=== PATIENT | female | born 1960 | race Caucasian/White ===

== ENCOUNTER 2024-07-07 16:15 | Emergency (ER) | payer BC, SELFPAY ==
[2024-07-07 16:45] VITALS: BP 130/71; PULSE 71; RESP 18; TEMP 36.8; O2SAT 98
--- NOTE | 2024-07-07 17:13 | ED.BACK ---
HPI - Back Pain/Injury General Chief Complaint: Back Pain/Injury Stated Complaint: Lower Back Spams Time Seen by Provider: 07/07/24 17:13 Source: patient, RN notes reviewed and old records reviewed Mode of arrival: ambulatory Limitations: no limitations History of Present Illness HPI Narrative: 63-year-old female presents to the [facility] with lower back spasms. Patient denies any frequency or urgency with urination, reports occasional abdominal distension but no pain. Patient states when she changes positions or twists she has increased lower back discomfort. No loss retention of bowel or bladder. No numbness or tingling in extremities. Walking with a slow but normal gait. No midline tenderness. Denies any injuries Patient states that she is from out of town, travel Tuesday. Has been sleeping on a hospital couch and driving, not as active as she has normally been Onset (ago): day(s) (5) Related Data Home Medications Medication Instructions Recorded Confirmed atorvastatin 40 mg tablet 40 mg DIRECTED 07/07/24 07/07/24 metformin 750 mg tablet,extended 750 mg PO BID 07/07/24 07/07/24 release 24 hr omeprazole 40 mg capsule,delayed 40 mg DIRECTED 07/07/24 07/07/24 release sertraline 100 mg tablet 100 mg DIRECTED 07/07/24 07/07/24 Allergies Allergy/AdvReac Type Severity Reaction Status Date / Time acetaminophen [From Percocet] AdvReac Shakiness Verified 07/07/24 16:43 meperidine [From Demerol] AdvReac Nausea and Verified 07/07/24 16:43 Vomiting oxycodone [From Percocet] AdvReac Shakiness Verified 07/07/24 16:43 Review of Systems Review of Systems: All systems reviewed & are unremarkable except as noted in HPI and below Constitutional: Constitutional: Reports no additional constitutional complaints Eyes: Eyes: Reports no additional eye complaints ENT: Reports system reviewed and no additional complaints, except as documented Cardiovascular: Cardiovascular: Reports no additional cardiovascular complaints, Denies chest pain and Denies dyspnea Respiratory: Respiratory: Reports no additional respiratory complaints, Denies chest congestion, Denies cough and Denies dyspnea Gastrointestinal: Gastrointestinal: Reports no additional gastrointestinal complaints, Denies abdominal pain, Denies nausea and Denies vomiting Musculoskeletal: Musculoskeletal: Reports as per HPI Integumentary/Breasts: Skin/Breast: Reports system reviewed and no additional complaints, except as docu Neurologic: Reports system reviewed and no additional complaints, except as documented Psychiatric: Psychiatric: Reports no additional psychiatric complaints Allergic/Immunologic: Allergic/Immunologic: Reports no additional allergic/immunologic complaints PMFSH Comments At the time of my signature, I reviewed and agree with the nursing past medical, surgical, social, and family history. There is no relevant family history pertinent to the patient complaint. Exam Const: General: cooperative, healthy appearing, comfortable, no acute distress, well developed, alert and well nourished Nutritional Appearance: well nourished Orientation/consciousness: patient oriented x3 Limitations: no limitations HENMT: Head: normal to inspection Ears: hearing grossly normal bilaterally and external ears normal Face/Nose/Sinus: Normal external nose present, Normal nares present, Normal nasal mucous membranes and turbinates present, normal facial exam and face symmetric Face and sinus: normal facial exam and face symmetric Eyes: General: appearance normal, both eyes and all related structures Alignment and Position: alignment normal Periorbital: periorbital findings normal Neck: Neck: normal visual inspection, full ROM, no lymphadenopathy and no meningeal signs Chest: Chest palpation & inspection: normal inspection of the chest Resp: Effort & Inspection: normal respiratory effort and able to speak in complete sentences Auscultation: clear to a
[2024-07-09 14:28] LABS: EDUAAPPEAR Clear; EDUABILI Negative (Negative); EDUABLOOD Negative (Negative); EDUACOLOR1 Yellow; EDUAGLUCOSE 2+ (Negative); EDUAKETONE Negative (Negative); EDUALEUKO Trace (Negative); EDUANITRATE Negative (Negative); EDUAPROTEIN Negative (Negative); EDUAUROBILI 0.2
== END 2024-07-07 17:35 | disposition home or self-care (01) ==
PROVIDERS: Emergency Provider Nurse Practitioner
DX: S39.012A Strain of muscle, fascia and tendon of lower back, initial encounter (principal)
CPT/HCPCS: 81003; 87086; 99203; G0463

== ENCOUNTER 2025-07-19 09:29 | Emergency (ER) | payer MEDICARE, SELFPAY ==
[2025-07-19 09:44] VITALS: BP 121/71; PULSE 69; RESP 18; TEMP 36.3; O2SAT 97
--- OUTSIDE RECORDS SUMMARY | 2025-07-19 09:50 | XMS_ITS | Encounter Summary ---
Author Organization [facility] Address [address] [place] [address] Care Team Providers Care Chemists Name Role Phone Dany Niño MD Unavailable [phone] Dany Niño MD Primary Care Provider [phone] Esther Garcia DO Unavailable [phone] Source Comments In the event that this is information that is protected by federal Confidentiality of Substance User Disorder Patient Records, CFR Part 2 prohibits the unauthorized disclosure of these records.[facility] Encounter Details Date Type Department Care Team (Late st Contact Info) Description 08/29/2024 Scanned Document [place] [facility] [address] [place] [address] Dany Niño MD [address] [place], [place] [id number] Social History Tobacco Use Types Packs/Day Years Used Date Smoking Tobacco: Never Smokeless Tobacco: Never Alcohol Use Standard Drinks/Week Comments Never 0 (1 standard drink = 0.6 oz pur e alcohol) Food Insecurity Answer Date Recorded Within the past 12 months, h ave there been times that your food ran out and didnt have money to get more? No 11/25/2023 Are there times that you worry that this might h appen? No 11/25/2023 Transportation Needs Answer Date Record ed Within the past 12 months, h as lack of transportation kept you from meeting your needs? No 11/25/2023 Select all that apply: Not on file Housing Stability Answer Date Recorded Are you facing challenges wi th a safe and reliable place to live? No 11/25/2023 Medication Affordability Answer Date Re corded Within the past 12 months, h ave you had trouble paying for medical supplies or medication-related expenses? No 11/25 Assistance Answer Date Recorded Would you like to be connect ed to groups that can help with any of these topics? (choose all that apply) None 11/25/2023 Housing Stability Answer Date Recorded Within the past 12 months, h as your electric, gas, oil or water been shut off? No 11/25/2023 Are you facing challenges wi th a safe and reliable place to live? 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 Gender Identity Not on file Sexual Orientation Not on file documented as of this encounter Plan of Treatment Upcoming Encounters Date Type Department Care Team (Late st Contact Info) Description 12/05/2025 9:30 AM PRINTED CIRCUIT BOARD ASSEMBLY REPAIRER Office Visit [place] [facility] [address] [place] [phone] Dany Niño MD [address] [place] [address] documented as of this encounter Visit Diagnoses Not on filedocumented in this encounter Care Teams Chemists Relationship Specialty Start Date End Date Dany Niño MD [address] [place] [address] PCP - General Family Medicine 01/25/24 Dany Niño MD [address] [place] [address] System Generated Attributed Clinician 12/18/23 Esther Garcia DO [address] [address] System Generated Attributed Clinician 03/20/24 documented as of this encounter
--- OUTSIDE RECORDS SUMMARY | 2025-07-19 09:50 | XMS_ITS | Encounter Summary ---
Author Organization [facility] Address [address] [place] [address] Care Team Providers Care Under Ground Miner Name Role Phone Dany Niño MD Unavailable [phone] Dany Niño MD Primary Care Provider [phone] Esther Garcia DO Unavailable [phone] Source Comments In the event that this is information that is protected by federal Confidentiality of Substance User Disorder Patient Records, CFR Part 2 prohibits the unauthorized disclosure of these records.[facility] Encounter Details Date Type Department Care Team (Late st Contact Info) Description 01/26/2024 Orders Only [place] Rheumatology [address] [facility] [address] [place] [address] Esther Garcia DO [address] [facility] [address] [place] [address] Social History Tobacco Use Types Packs/Day Years [...] on file 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 Gender Identity Not on file Sexual Orientation Not on file documented as of this encounter Plan of Treatment Upcoming Encounters Date Type Department Care Team (Late st Contact Info) Description 12/05/2025 9:30 AM OLIVER FILTER OPERATOR Office Visit [place] [facility] [address] [place] [phone] Dany Niño MD [address] [place] [address] documented as of this encounter Visit Diagnoses Not on filedocumented in this encounter Care Teams Under Ground Miner Relationship Specialty Start Date End Date Dany Niño MD [address] [place] [address] PCP - General Family Medicine 01/25/24 Dany Niño MD [address] [place] [address] System Generated Attributed Clinician 12/18/23 Esther Garcia DO [address] [facility] [address] [place] [address] System Generated Attributed Clinician 03/20/24 documented as of this encounter
--- OUTSIDE RECORDS SUMMARY | 2025-07-19 09:50 | XMS_ITS | Clinical Summary ---
Author Organization [facility] Address [address] [place] [address] Care Team Providers Care Farmworker Grain Name Role Phone Pcp, No Primary Care Provider Unavailabl e Allergies No known active allergies Medications No known medications Social History Tobacco Use Types Packs/Day Years Used Date Smoking Tobacco: Never Assessed Inadequate Housing Answer Date Recorded Social Determinants: Housing (Overall Score Help er) 0 02/12/2022 Comments No Sex and Gender Information Value Date Recorded Sex Assigned at Not on file Legal Sex Female 9:53 AM CDT Gender Identity Not on file Sexual Orientation Not on file Last Filed Vital Signs Vital Sign Reading Time Taken Comments Blood Pressure 110/68 03/19/2023 9:11 AM CDT Pulse 77 03/19/2023 9:11 AM CDT Temperature 37.2 C (99 F) 03/19/2023 9:11 AM CDT Respiratory Rate 16 03/19/2023 9:11 AM CDT Oxygen Saturation 98% 03/19/2023 9:11 AM CDT Inhaled Oxygen Concentration - - Weight 79.4 kg (175 lb) 03/19/2023 9:11 AM CDT Height 165.1 cm (5' 5) 03/19/2023 9:11 AM CDT Body Mass Index 29.12 03/19/2023 9:11 AM CDT Plan of Treatment Health Maintenance Due Date Last Done Comments Depression Screening 1971 DTaP/Tdap/Td Vaccine (1 - Tdap) 12/17/1978 CT Colonography 12/17/2004 Cologuard 12/17/2004 Colonoscopy 12/17/2004 Colorectal Cancer Screening 12/17/2004 Fecal Occult Blood 12/17/2004 Sigmoidoscopy 12/17/2004 Pneumococcal Vaccine 50+ (1 of 1 - PCV) 12/17/2009 Shingles Vaccine (1 of 2) 12/17/2009 Osteoporosis Screening 12/17/2024 COVID-19 Vaccine (2 - 2024-2 6 season) 2025 01/28/2022 Influenza Vaccine (#1) 2025 07/30/2018 Respiratory Syncytial Virus (RSV) Vaccine 60+ (1 - 1-dose 75+ series) 12/17/2034 Hepatitis C Screening Discontinued 02/15/2022 HPV Vaccine (No Doses Required) Completed Hepatitis A Vaccine Aged Out No longe r eligible based on patient's age to complete this topic Hepatitis B Vaccine (For Physician/APC Discussion) Aged Out No longer elig ible based on patient's age to complete this topic Meningococcal Serogroup B Vaccine Aged Out No longer eligible based on patient's age to complete this topic Meningococcal Vaccine Aged Out No colette ajit eligible based on patient's age to complete this topic Procedures Procedure Name Priority Date/Time Associated Diagnosis Comments HEPATITIS C ANTIBODY WITH REFLEX Routine 02/15/2022 12:10 PM CDT from Last 3 Months or Most Recently Relevant to Health Maintenance Results * Hepatitis C Antibody With Reflex (02/15/2022 12:10 PM CDT) Hepatitis C Antibody Negative Negative 02/15/2022 6:20 PM CDT [facility] Blood VENOUS BLOOD SPECIMEN / Unknown Venipuncture / Unknown 02/15/2022 12:10 PM CDT 02/15/2022 12:38 PM CDT us Polina Rodriguez MD [facility] LAB BLOOD ORDERABLES Fi nal Result [facility] [address] [place] [address] from Last 3 Months or Most Recently Relevant to Health Maintenance Insurance BCBS OUT OF STATE (SEND TO LOCAL) Care Teams Farmworker Grain Relationship Specialty Start Date End Date Pcp, No PCP - General 02/12/22
--- OUTSIDE RECORDS SUMMARY | 2025-07-19 09:50 | XMS_ITS | Encounter Summary ---
Author Organization [facility] Address [address] [place] [address] Care Team Providers Care Filling Station Attendant Name Role Phone Dany Niño MD Unavailable [phone] Dany Niño MD Primary Care Provider [phone] Esther Garcia DO Unavailable [phone] Source Comments In the event that this is information that is protected by federal Confidentiality of Substance User Disorder Patient Records, 42 CFR Part 2 prohibits the unauthorized disclosure of these records.[facility] Encounter Details Date Type Department Care Team (Late st Contact Info) Description 04/06/2024 Orders Only [place] [facility] [address] [place] [address] Provider, Historical Social History Tobacco Use Types Packs/Day Years [...] on file 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 Gender Identity Not on file Sexual Orientation Not on file documented as of this encounter Plan of Treatment Upcoming Encounters Date Type Department Care Team (Late st Contact Info) Description 12/05/2025 9:30 AM HEAT WELDER PLASTICS Office Visit [place] [facility] [address] [place] [phone] Dany Niño MD [address] [place] [address] documented as of this encounter Procedures Procedure Name Priority Date/Time Associated Diagnosis Comments OTHER LAB MANUAL RESULT ENTRY Routine 03/30/2024 1:50 PM CDT documented in this encounter Results * Other Lab Manual Result Entry (03/30/2024 1:50 PM CDT) us Historical Provider LAB SEND OUT ORDERABLES Janelle l Result OTHER EXTERNAL LAB documented in this encounter Visit Diagnoses Not on filedocumented in this encounter Care Teams Filling Station Attendant Relationship Specialty Start Date End Date Dany Niño MD [address] [place] [address] PCP - General Family Medicine 01/25/24 Dany Niño MD [address] [place] [address] System Generated Attributed Clinician 12/18/23 Esther Garcia DO [address] [facility] [address] [place] [address] System Generated Attributed Clinician 03/20/24 documented as of this encounter
--- OUTSIDE RECORDS SUMMARY | 2025-07-19 09:50 | XMS_ITS | Encounter Summary ---
Author Organization [facility] Address [address] [place] [address] Care Team Providers Care Clinical Research Management Associate Name Role Phone Dany Niño MD Unavailable [phone] Dany Niño MD Primary Care Provider [phone] Esther Garcia DO Unavailable [phone] Source Comments In the event that this is information that is protected by federal Confidentiality of Substance User Disorder Patient Records, 42 CFR Part 2 prohibits the unauthorized disclosure of these records.[facility] Encounter Details Date Type Department Care Team (Late st Contact Info) Description 01/27/2024 Orders Only [place] [facility] [address] [place] [address] Provider, Historical Social History Tobacco [...] on file 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 Gender Identity Not on file Sexual Orientation Not on file documented as of this encounter Plan of Treatment Upcoming Encounters Date Type Department Care Team (Late st Contact Info) Description 12/05/2025 9:30 AM INTEGRATED MARKETING MANAGER Office Visit [place] [facility] [address] [place] [phone] Dany Niño MD [address] [place] [address] documented as of this encounter Procedures Procedure Name Priority Date/Time Associated Diagnosis Comments DILATED DIABETIC RETINAL EXAM MANUAL RESULT ENTRY Routine 01/27/2024 2:01 PM CDT documented in this encounter Results * Dilated Diabetic Retinal Exam Manual Result Entry (01/27/2024 2:01 PM CDT) Historical Provider PROCEDURE/MINOR SURGICAL PER FORMABLES Final Result OTHER EXTERNAL LAB documented in this encounter Visit Diagnoses Not on filedocumented in this encounter Care Teams Clinical Research Management Associate Relationship Specialty Start Date End Date Dany Niño MD [address] [place] [address] PCP - General Family Medicine 01/25/24 Dany Niño MD [address] [place] [address] System Generated Attributed Clinician 12/18/23 Esther Garcia DO [address] [facility] [address] [place] [address] System Generated Attributed Clinician 03/20/24 documented as of this encounter
--- OUTSIDE RECORDS SUMMARY | 2025-07-19 09:50 | XMS_ITS | Encounter Summary ---
Author Organization [facility] Address [address] [place] [address] Care Team Providers Care Junior Recruiter Name Role Phone Dany Niño MD Unavailable [phone] Dany Niño MD Primary Care Provider [phone] Esther Garcia DO Unavailable [phone] Source Comments In the event that this is information that is protected by federal Confidentiality of Substance User Disorder Patient Records, CFR Part 2 prohibits the unauthorized disclosure of these records.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 Gender Identity Not on file Sexual Orientation Not on file documented as of this encounter Plan of Treatment Upcoming Encounters Date Type Department Care Team (Late st Contact Info) Description 12/05/2025 9:30 AM DIRECTOR DERMATOLOGY Office Visit [place] [facility] [address] [place] [phone] Dany Niño MD [address] [place] [address] documented as of this encounter Results * Xray Abdomen AP (02/10/2024 1:20 PM CDT) Anatomical Region Laterality Modality Abdomen Digital Radiogra phy 02/10/2024 8:15 PM CDT Narrative 02/10/2024 8:17 PM CDT PROCEDURE: XR ABDOMEN AP COMPARISON: None. INDICATIONS: Abnormal findings in stool FINDINGS: BOWEL GAS PATTERN: Nonspecific bowel gas pattern. No dilated bowel loop is seen. A small fecal burden is present. BONES: Mild degenerative changes of the lumbar spine. Subchondral sclerosis of the SI joints may reflect a spondyloarthropathy. OTHER: Bilateral pelvic phleboliths are present. CONCLUSION: Nonspecific bowel gas pattern. No significant fecal loading of the large bowel or rectum is appreciated to suggest constipation. FINAL REPORT Attending Radiologist: Alexandro Bright MD Date Signed Off: 02/10/2024 20:17 Procedure Note Alexandro Bright MD - 02/10/2024 PROCEDURE: XR ABDOMEN AP COMPARISON: None. INDICATIONS: Abnormal findings in stool FINDINGS: BOWEL GAS PATTERN: Nonspecific bowel gas pattern. No dilated bowel loopis seen. A small fecal burden is present. BONES: Mild degenerative changes of the lumbar spine. Subchondralsclerosis of the SI joints may reflect a spondyloarthropathy. OTHER: Bilateral pelvic phleboliths are present. CONCLUSION: Nonspecific bowel gas pattern. No significant fecal loading of the large bowel or rectum is appreciatedto suggest constipation. FINAL REPORT Attending Radiologist: Alexandro Bright MD Date Signed Off: 02/10/2024 20:17 Bill Arzola MD IMG DIAGNOSTIC IMAGING ORDER [place] Final Result documented in this encounter Visit Diagnoses Diagnosis Abnormal findings in stool- Primary Nonspecific abnormal finding in stool contents Abnormal findings in stool Nonspecific abnormal finding in stool contents documented in this encounter Care Teams Junior Recruiter Relationship Specialty Start Date End Date Dany Niño MD [address] [place] [address] PCP - General Family Medicine 01/25/24 Dany Niño MD [address] [place] [address] System Generated Attributed Clinician 12/18/23 Esther Garcia DO [address] [address] System Generated Attributed Clinician 03/20/24 documented as of this encounter
--- NOTE | 2025-07-19 10:02 | ED.FEMALEGU ---
HPI - Female Genitourinary General Chief complaint: Urogenital-Female Stated complaint: yeast inf Time Seen by Provider: 07/19/25 09:50 Source: patient and RN notes reviewed Mode of arrival: ambulatory Limitations: no limitations History of Present Illness HPI Narrative: 64 y/o female with hx DM presented for c/o 'yeast infection.' States for 5 days she has had redness and itching to the clarence area. Has used Vagisil otc, and an unknown prescription cream without much improvement. Denies vaginal discharge, urinary complaints, n/v/d/f/c. Related Data Home Medications ?Medication ?Instructions ?Recorded ?Confirmed ?Last Taken ?Type atorvastatin 40 mg tablet 40 mg DIRECTED 07/07/24 07/07/24 Unknown History metformin 750 mg tablet,extended 750 mg PO BID 07/07/24 07/07/24 Unknown History release 24 hr omeprazole 40 mg capsule,delayed 40 mg DIRECTED 07/07/24 07/07/24 Unknown History release sertraline 100 mg tablet 100 mg DIRECTED 07/07/24 07/07/24 Unknown History sitagliptin phosphate 100 mg mg 07/19/25 Unknown History tablet (Januvia) Allergies Allergy/AdvReac Type Severity Reaction Status Date / Time acetaminophen (From Percocet) AdvReac Shakiness Verified 07/19/25 09:45 meperidine (From Demerol) AdvReac Nausea and Verified 07/19/25 09:45 Vomiting oxycodone (From Percocet) AdvReac Shakiness Verified 07/19/25 09:45 Review of Systems Review of Systems: CONSTITUTIONAL: Denies body aches, fever, chills, or sweats. CARDIOVASCULAR: Denies chest pain, palpitations, or edema. RESPIRATORY: Denies cough or dyspnea. GASTROINTESTINAL: Denies abdominal pain, nausea, vomiting, or diarrhea. GENITOURINARY: Reports skin rash deneis dysuria, frequency, urgency, hematuria, flank pain, discharge SKIN: Denies wounds. MUSCULOSKELETAL: Denies back pain or myalgia. PMFSH Comments At time of signature, I have reviewed and agree with nursing past medical, surgical, social and family history unless otherwise noted. Please see nursing chart for further information. There is no relevant family history pertinent to the presenting complaint Exam Narrative: GENERAL: Well-appearing and in no acute distress. ENT: Mucous membranes pink and moist. CHEST: No respiratory distress. HEART: Regular rate and rhythm. ABDOMEN: Soft, nontender, nondistended, normal active bowel sounds. No CVA tenderness SKIN: Erythematous papular rash noted to bilateral groin folds extending over the pubic mons, consistent with candidiasis; nontender no vesicles. NEURO: Alert and oriented x3. PSYCH: Normal affect. Course Course Emergency Course: Patient is aware of diagnosis, understands and agrees to treatment plan. Anticipatory guidance given. Patient agrees to follow-up as directed and is aware of reasons to seek care at the emergency department. Portions of this record may have been created with voice recognition software Level of Care: Express Care Visit Vital Signs Vital signs: Vital Signs Temperature 97.3 F L 07/19/25 09:44 Pulse Rate 69 07/19/25 09:44 Respiratory Rate 18 07/19/25 09:44 Blood Pressure 121/71 07/19/25 09:44 Pulse Oximetry 97 07/19/25 09:44 Oxygen Delivery Room Air 07/19/25 09:44 Temperature 97.3 F L 07/19/25 09:44 Pulse Rate 69 07/19/25 09:44 Respiratory Rate 18 07/19/25 09:44 Blood Pressure 121/71 07/19/25 09:44 Pulse Oximetry 97 07/19/25 09:44 Oxygen Delivery Room Air 07/19/25 09:44 Reviewed MDM - Female Genitourinary MDM Narrative Medical decision making narrative: Discussed physical exam findings. Advised supportive measures and signs/symptoms to go to the ER. Pt is appropriate for outpt treatment and f/u. Differential Diagnosis Differential diagnosis: Likely bacterial vaginosis, vaginitis and other (Dermatitis) Discharge Plan Discharge Clinical Impression: Candidiasis of skin Patient Disposition: Home Condition: Stable Instructions: Antibiotic Form, Skin Yeast Infection (ED) Additional Instructions: Apply the Nystatin cream as directed until rash is gone. Then use for an additional week. If no improvement, you can take the pill as directed Wash with gentle soap and allow to fully dry. Follow up with your primary care provider as needed in 1 week Go to the ER for worsening symptoms or concerns Patient Language: Frisian Prescriptions: New fluconazole 150 mg tablet 150 mg PO DAILY Qty: 2 0RF Rx Instructions: Take one dose. If symptoms persist, you may take the other tablet in 72 hours. nystatin 100,000 unit/gram cream 1 applic topical TID 14 Days Qty: 30 0RF No Action atorvastatin 40 mg tablet 40 mg DIRECTED sertraline 100 mg tablet 100 mg DIRECTED omeprazole 40 mg capsule,delayed release(DR/EC) 40 mg DIRECTED metformin 750 mg tablet extended release 24 hr 750 mg PO BID Januvia 100 mg tablet Follow-up/Referrals: UNKNOWN,DOCTOR [Primary Care Provider] Time of Disposition: 10:13
== END 2025-07-19 10:10 | disposition home or self-care (01) ==
PROVIDERS: Emergency Provider Nurse Practitioner Family
DX: B37.2 Candidiasis of skin and nail (principal); E11.9 Type 2 diabetes mellitus without complications; Z79.84 Long term (current) use of oral hypoglycemic drugs; E78.00 Pure hypercholesterolemia, unspecified; K21.9 Gastro-esophageal reflux disease without esophagitis; F41.9 Anxiety disorder, unspecified; F32.A Depression, unspecified
CPT/HCPCS: 99213; G0463